=== PATIENT | female | born 1985 | race Caucasian/White ===

== ENCOUNTER 2024-11-27 07:52 | Emergency (ER) | payer OTHER, SELFPAY ==
--- NOTE | ~2024-11-27 | XR_ITS ---
EXAMINATION: XR ankle LT min 3V DATE: 11/27/2024 10:17 INDICATION: Lateral left ankle pain and bruising TECHNIQUE: Anteroposterior, oblique, mortise, and lateral views of the left ankle were obtained. COMPARISON: None. FINDINGS: Bone alignment is normal. Small corticated heterotopic ossicle situated between the tip the lateral m alleolus and the lateral process of the talus without evident donor site, likely related to chronic a nterior talofibular ligament sprain. No acute fracture. Joint spaces are normal. No cortical erosions or periosteal reaction. No definitive ankle joint effusion. Soft tissue swelling about the lateral m alleolus. No soft tissue gas or radiopaque foreign bodies. IMPRESSION: 1. No acute osseous abnormality. Reviewed, dictated and finalized at location A. EY COORDINATOR
[2024-11-27 07:56] VITALS: TEMP 36.6
--- OUTSIDE RECORDS SUMMARY | 2024-11-27 07:56 | XMS_ITS | Referral Summary ---
Author Organization [facility] Address [address] [place] [address] Care Team Providers Care Surveillance Observer Name Role Phone Unavailable Primary Care Provider Unavailabl e Immunizations Name Administration Dates Next Due Hep B, adult 02/08/2017 Social History Tobacco Use Types Packs/Day Years Used Date Smoking Tobacco: Never Assessed Inadequate Housing Answer Date Recorded Social Determinants: Housing (Overall Score Help er) 0 05/20/2019 Sex and Gender Information Value Date Recorded Sex Assigned at Not on file Gender Identity Not on file Sexual Orientation Not on file Last Filed Vital Signs Vital Sign Reading Time Taken Comments Blood Pressure 100/70 01/20/2017 1:44 PM CDT Pulse 92 01/20/2017 1:44 PM CDT Temperature 36.8 C (98.2 F) 01/20/2017 1:44 PM CDT Respiratory Rate 20 01/20/2017 1:44 PM CDT Oxygen Saturation - - Inhaled Oxygen Concentration - - Weight 53.5 kg (118 lb) 01/20/2017 1:44 PM CDT Height 162.6 cm (5' 4 ) 01/20/2017 1:44 PM CDT Body Mass Index 20.25 01/20/2017 1:44 PM CDT Plan of Treatment Not on file
--- OUTSIDE RECORDS SUMMARY | 2024-11-27 07:57 | XMS_ITS | Clinical Summary ---
Author Organization [facility] Address [address] [place] [id number] Care Team Providers Care Farm Crops Teacher Name Role Phone Unavailable Primary Care Provider [...] 01/20/2017 1:44 PM CDT Plan of Treatment Health Maintenance Due Date Last Done Comments Depression Screening 1998 Varicella Vaccine (1 of 2 - 13+ 2-dose series) 1999 DTaP/Tdap/Td Vaccine (1 - Tdap) 2005 Hepatitis B Vaccine (2 of 3 - 19+ 3-dose series) 03/08/2017 02/08/2017 COVID-19 Vaccine ( - 2023-2 5 season) 2024 Influenza Vaccine (#1) 2024 HPV Vaccine Aged Out No longer eligi ble based on patient's age to complete this topic Hepatitis A Vaccine Aged Out No longe r eligible based on patient's age to complete this topic Meningococcal Serogroup B Vaccine Aged Out No longer eligible based on patient's age to complete this topic Meningococcal Vaccine Aged Out No jessy madelyn eligible based on patient's age to complete this topic Pneumococcal Vaccine 0-49 Aged Out No longer eligible based on patient's age to complete this topic
--- OUTSIDE RECORDS SUMMARY | 2024-11-27 07:57 | XMS_ITS | Referral Summary ---
Author Organization [address] Address [address] [place] [address] Care Team Providers Care New Car Salesperson Name Role Phone Kira Rivera Primary Care Provider Unavailab le Encounters Date Type Department Care Team Description 11/23/2024 4:30 PM INTERNAL MEDICINE VETERINARY TECHNICIAN Office Visit [facility] [place] [address] [place] [address] Christiana Basilio NP Rash (Primary Dx) 09/12/2024 8:15 AM INTERNAL MEDICINE VETERINARY TECHNICIAN Office Visit [facility] [place] [address] [place] [address] Christiana Basilio NP Strep pharyngitis (Primary Dx) from Last 3 Months Allergies No known active allergies Medications clotrimazole 1 % creamIndication s:Rash Apply topically 2 (two) times a day Continue using for 1 week after symptoms resolve, up to 4 weeks total. 30 g 1 4 Active Additional Information Patient not taking.Reported on 11/23/2024 clobetasoL (TEMOVATE) 0.05 % creamIndication s:Rash Apply topically 2 (two) times a day 30 g 5 Active predniSONE (DELTASONE) 20 mg tabletIndicatio ns:Rash Take 1 tablet (20 mg) by mouth 2 (two) times a day for 5 days 10 tablet 5 11/28/19 25 Active Active Problems Problem Noted Date Diagnosed Date Premenstrual dysphoric disorder 02/21/2014 Overview (01/11/2017): PMDD (premenstrual dysphoric disorder) Calculus of kidney 11/24/2013 Overview (01/11/2017): Nephrolithiasis Immunizations Immunization Administration Dates Next Due Hep B Vaccine 05/15/1997,12/12/1996,11/14/1996 MMR 04/29/1992,12/10/1987 Td, adsorbed 05/21/2002 Social History Tobacco Use Types Packs/Day Years Used Date Smoking Tobacco: Never Assessed Comments:Smoking History Pac ks/day: 0 Packs Alcohol Use Standard Drinks/Week Comments Yes 0 (1 standard drink = 0.6 oz pur e alcohol) Comments Unknown Sex and Gender Information Value Date Recorded Sex Assigned at Not on file Legal Sex Female 2:26 AM INTERNAL MEDICINE VETERINARY TECHNICIAN Gender Identity Not on file Sexual Orientation Not on file Last Filed Vital Signs Vital Sign Reading Time Taken Comments Blood Pressure 126/80 11/23/2024 4:15 PM INTERNAL MEDICINE VETERINARY TECHNICIAN Pulse 101 11/23/2024 4:15 PM INTERNAL MEDICINE VETERINARY TECHNICIAN Temperature 36.1 C (97 F) 11/23/2024 4:15 PM INTERNAL MEDICINE VETERINARY TECHNICIAN Respiratory Rate 17 11/23/2024 4:15 PM INTERNAL MEDICINE VETERINARY TECHNICIAN Oxygen Saturation 98% 11/23/2024 4:15 PM INTERNAL MEDICINE VETERINARY TECHNICIAN Inhaled Oxygen Concentration - - Weight 76.2 kg (168 lb) 11/23/2024 4:15 PM INTERNAL MEDICINE VETERINARY TECHNICIAN Height 162.6 cm (5' 4 ) 11/23/2024 4:15 PM INTERNAL MEDICINE VETERINARY TECHNICIAN Body Mass Index 28.84 11/23/2024 4:15 PM INTERNAL MEDICINE VETERINARY TECHNICIAN Plan of Treatment Not on file Procedures Procedure Name Priority Date/Time Associated Diagnosis Comments POCT RAPID STREP Routine 09/12/2024 8:22 AM INTERNAL MEDICINE VETERINARY TECHNICIAN Strep pharyngitis from Last 3 Months Results * (ABNORMAL) POCT rapid strep A (09/12/2024 8:22 AM INTERNAL MEDICINE VETERINARY TECHNICIAN) Rapid Strep A, POC Positive(A ) Negative Swab 09/12/2024 8:22 AM INTERNAL MEDICINE VETERINARY TECHNICIAN Christiana Basilio NP POINT OF CARE TEST ORDERABLES Final Result from Last 3 Months Insurance [facility]NA [facility] Care Teams New Car Salesperson Relationship Specialty Start Date End Date Kira Rivera PCP - General 10/14/12
--- OUTSIDE RECORDS SUMMARY | 2024-11-27 07:57 | XMS_ITS | Clinical Summary ---
Author Organization [address] Address [address] [place] [address] Care Team Providers Care Brim Flexer Name Role Phone Kira Rivera Primary Care Provider Unavailab le Allergies No known active allergies Medications clotrimazole [...] Calculus of kidney 11/24/2013 Overview (01/11/2017): Nephrolithiasis Encounters Date Type Department Care Team Description 11/23/2024 4:30 PM ENVIRONMENTAL SCIENCE PROFESSOR Office Visit [facility] at [address] [place] [address] Christiana Basilio NP Rash (Primary Dx) 09/12/2024 8:15 AM ENVIRONMENTAL SCIENCE PROFESSOR Office Visit [facility] [place] [address] [place] [address] Christiana Basilio, JAQUELINE Strep pharyngitis (Primary Dx) from Last 3 Months Immunizations Immunization Administration Dates Next Due Hep B Vaccine 05/15/1997,12/12/1996,11/14/1996 MMR 04/29/1992,12/10/1987 Td, adsorbed 05/21/2002 Surgical History Surgery Date Site/Laterality Comments OTHER SURGICAL HISTORY PREETI III. HPV POS: LEEP CONE Medical History Medical History Date Comments Hx Other Medical 2007 PREETI III. HPV PO S Family History Medical History Relation Name Comments Alcohol abuse Father Alcoholism; Diabetes type II Maternal Grandfather Talisha loco -Type 2; Blood Clot Maternal Grandmother BLOOD C LOTS; Alcohol abuse Mother Alcoholism; Hyperlipidemia Mother Hyperlipidemi a; Coronary artery disease Other Fami ly history of Coronary artery disease; Lung cancer Other Family history of Cancer -lung; Diabetes type I Sister Diabetes -Ty pe 1; Relation Name Status Comments Father Maternal Grandfather Maternal Grandmother Mother Other Sister Social History Tobacco Use Types Packs/Day Years Used Date Smoking Tobacco: Never Assessed Comments:Smoking History Pac ks/day: 0 Packs Alcohol Use Standard Drinks/Week Comments Yes 0 (1 standard drink = 0.6 oz pur e alcohol) Comments Unknown Sex and Gender Information Value Date Recorded Sex Assigned at Not on file Legal Sex Female 2:26 AM ENVIRONMENTAL SCIENCE PROFESSOR Gender Identity Not on file Sexual Orientation Not on file Obstetrics History Last Filed Vital Signs Vital Sign Reading Time Taken Comments Blood Pressure 126/80 11/23/2024 4:15 PM ENVIRONMENTAL SCIENCE PROFESSOR Pulse 101 11/23/2024 4:15 PM ENVIRONMENTAL SCIENCE PROFESSOR Temperature 36.1 C (97 F) 11/23/2024 4:15 PM ENVIRONMENTAL SCIENCE PROFESSOR Respiratory Rate 17 11/23/2024 4:15 PM ENVIRONMENTAL SCIENCE PROFESSOR Oxygen Saturation 98% 11/23/2024 4:15 PM ENVIRONMENTAL SCIENCE PROFESSOR Inhaled Oxygen Concentration - - Weight 76.2 kg (168 lb) 11/23/2024 4:15 PM ENVIRONMENTAL SCIENCE PROFESSOR Height 162.6 cm (5' 4 ) 11/23/2024 4:15 PM ENVIRONMENTAL SCIENCE PROFESSOR Body Mass Index 28.84 11/23/2024 4:15 PM ENVIRONMENTAL SCIENCE PROFESSOR Plan of Treatment Health Maintenance Due Date Last Done Comments Cervical Cancer Screening 1986 Depression Screening 1986 Hepatitis C Screening 1986 Varicella Vaccines (1 of 2 - 13+ 2-dose series) 1999 DTaP/Tdap/Td Vaccine (1 - Tdap) 05/22/2002 05/21/2002 Regular Well Visit/Exam 18-64 2004 Influenza Vaccine (#1) 2024 Hepatitis B Screening Completed 05/15/1997 , 12/12/1996, 11/14/1996 HPV Vaccines Aged Out No longer eligi ble based on patient's age to complete this topic Pneumococcal vaccine <65 Aged Out No longer eligible based on patient's age to complete this topic Procedures Procedure Name Priority Date/Time Associated Diagnosis Comments POCT RAPID STREP Routine 09/12/2024 8:22 AM ENVIRONMENTAL SCIENCE PROFESSOR Strep pharyngitis from Last 3 Months Results * (ABNORMAL) POCT rapid strep A (09/12/2024 8:22 AM ENVIRONMENTAL SCIENCE PROFESSOR) Rapid Strep A, POC Positive(A ) Negative Swab 09/12/2024 8:22 AM ENVIRONMENTAL SCIENCE PROFESSOR Christiana Basilio NP POINT OF CARE TEST ORDERABLES Final Result from Last 3 Months Insurance AETNA [facility] Care Teams Brim Flexer Relationship Specialty Start Date End Date Kira Rivera PCP - General 10/14/12
[2024-11-27 08:02] VITALS: BP 130/90; PULSE 98; RESP 16; TEMP 36.4; O2SAT 98
[2024-11-27 08:16] LABS: BEDSIDEPREGUCG Negative (Negative)
--- OUTSIDE RECORDS SUMMARY | 2024-11-27 08:34 | XMS_ITS | Referral Summary ---
Author Organization [address] Address [address] [place] [address] Care Team Providers Care Radiology Physician Name Role Phone Kira Rivera Primary Care Provider Unavailab le Encounters Date Type Department Care Team Description 11/23/2024 4:30 PM BOOT TURNER Office Visit [facility] [place] [address] [place] [address] Christiana Basilio NP Rash (Primary Dx) 09/12/2024 8:15 AM BOOT TURNER Office Visit [facility] [place] [address] [place] [address] Christiana Basilio NP Strep pharyngitis [...] on file Legal Sex Female 2:26 AM BOOT TURNER Gender Identity Not on file Sexual Orientation Not on file Last Filed Vital Signs Vital Sign Reading Time Taken Comments Blood Pressure 126/80 11/23/2024 4:15 PM BOOT TURNER Pulse 101 11/23/2024 4:15 PM BOOT TURNER Temperature 36.1 C (97 F) 11/23/2024 4:15 PM BOOT TURNER Respiratory Rate 17 11/23/2024 4:15 PM BOOT TURNER Oxygen Saturation 98% 11/23/2024 4:15 PM BOOT TURNER Inhaled Oxygen Concentration - - Weight 76.2 kg (168 lb) 11/23/2024 4:15 PM BOOT TURNER Height 162.6 cm (5' 4 ) 11/23/2024 4:15 PM BOOT TURNER Body Mass Index 28.84 11/23/2024 4:15 PM BOOT TURNER Plan of Treatment Not on file Procedures Procedure Name Priority Date/Time Associated Diagnosis Comments POCT RAPID STREP Routine 09/12/2024 8:22 AM BOOT TURNER Strep pharyngitis from Last 3 Months Results * (ABNORMAL) POCT rapid strep A (09/12/2024 8:22 AM BOOT TURNER) Rapid Strep A, POC Positive(A ) Negative Swab 09/12/2024 8:22 AM BOOT TURNER Christiana Basilio NP POINT OF CARE TEST ORDERABLES Final Result from Last 3 Months Insurance [facility]ETNA [facility] Care Teams Radiology Physician Relationship Specialty Start Date End Date Kira Rivera PCP - General 10/14/12
--- OUTSIDE RECORDS SUMMARY | 2024-11-27 08:34 | XMS_ITS | Clinical Summary ---
Author Organization [facility] Address [address] [place] [address] Care Team Providers Care Edger Machine Operator Name Role Phone Unavailable Primary Care Provider [...]
--- OUTSIDE RECORDS SUMMARY | 2024-11-27 08:34 | XMS_ITS | Referral Summary ---
Author Organization [facility] Address [address] [place] [address] Care Team Providers Care Sas Etl Developer Name Role Phone Unavailable Primary Care Provider [...]
--- OUTSIDE RECORDS SUMMARY | 2024-11-27 08:34 | XMS_ITS | Clinical Summary ---
Author Organization [address] Address [address] [place] [address] Care Team Providers Care Engineer Process Name Role Phone Kira Rivera Primary Care [...] Department Care Team Description 11/23/2024 4:30 PM GLOBAL ACCOUNT MANAGER Office Visit [facility] at [address] [place] [address] Christiana Basilio NP Rash (Primary Dx) 09/12/2024 8:15 AM GLOBAL ACCOUNT MANAGER Office Visit [facility] [place] [address] [place] [address] Christiana Basilio, JAQUELINE Strep pharyngitis (Primary [...] on file Legal Sex Female 2:26 AM GLOBAL ACCOUNT MANAGER Gender Identity Not on file Sexual Orientation Not on file Obstetrics History Last Filed Vital Signs Vital Sign Reading Time Taken Comments Blood Pressure 126/80 11/23/2024 4:15 PM GLOBAL ACCOUNT MANAGER Pulse 101 11/23/2024 4:15 PM GLOBAL ACCOUNT MANAGER Temperature 36.1 C (97 F) 11/23/2024 4:15 PM GLOBAL ACCOUNT MANAGER Respiratory Rate 17 11/23/2024 4:15 PM GLOBAL ACCOUNT MANAGER Oxygen Saturation 98% 11/23/2024 4:15 PM GLOBAL ACCOUNT MANAGER Inhaled Oxygen Concentration - - Weight 76.2 kg (168 lb) 11/23/2024 4:15 PM GLOBAL ACCOUNT MANAGER Height 162.6 cm (5' 4 ) 11/23/2024 4:15 PM GLOBAL ACCOUNT MANAGER Body Mass Index 28.84 11/23/2024 4:15 PM GLOBAL ACCOUNT MANAGER Plan of Treatment Health Maintenance Due Date [...] POCT RAPID STREP Routine 09/12/2024 8:22 AM GLOBAL ACCOUNT MANAGER Strep pharyngitis from Last 3 Months Results * (ABNORMAL) POCT rapid strep A (09/12/2024 8:22 AM GLOBAL ACCOUNT MANAGER) Rapid Strep A, POC Positive(A ) Negative Swab 09/12/2024 8:22 AM GLOBAL ACCOUNT MANAGER Christiana Basilio NP POINT OF CARE TEST ORDERABLES Final Result from Last 3 Months Insurance [facility]ETNA [facility] Care Teams Engineer Process Relationship Specialty Start Date End Date Kira Rivera PCP - General 10/14/12
[2024-11-27 08:39] LABS: Basophils Absolute Auto 0.1 K/mm3 (0.0-0.1); Basophils Percent Auto 0.5 % (0.2-1.2); Eosinophils Absolute Auto 0.2 K/mm3 (0-0.3); Eosinophils Percent Auto 2.3 % (0-4.4); Hematocrit 40.8 % (37.0-47.0); Hemoglobin 14.4 g/dL (12.0-15.0); Immature Granulocyte Absolute 0.03 K/mm3 (0.00-0.031); Immature Granulocyte Percent A 0.3 % (0-0.5); Mean Corpuscular HGB Conc 35.3 g/dl (32-36); Mean Corpuscular Hemoglobin 34.1 pg (26-34); Mean Corpuscular Volume 96.7 fl (80-100); Mean Platelet Volume 9.6 fl (7.4-10.4); Monocytes Absolute Auto 0.8 K/mm3 (0.1-0.6); Monocytes Percent Auto 8.1 % (2.6-8.5); Neutrophils Absolute Auto 6.1 K/mm3 (1.3-6.7); Neutrophils Percent Auto 63.8 % (45.5-73.1); Platelet Count Result 246 k/mm3 (150-375); Red Blood Count 4.22 M/mm3 (4.2-5.4); Red Cell Distribution Width 11.9 % (11.5-14.5); White Blood Count 9.6 K/mm3 (4.5-10.0)
[2024-11-27 08:48] LABS: Add Urine Microscopic? YES; Appearance Urine Cloudy (Clear); Bacteria Urine 1+ /hpf; Bilirubin Urine Negative (Negative); Blood Urine Negative (Negative); Color Urine Yellow (Yellow); Glucose Urine UA Negative (Negative); Ketones Urine Trace mg/dL (Negative); Leukocyte Esterase Ur 1+ LEU/UL (Negative); Nitrate Urine Negative (Negative); Non Pathogenic Casts 0-2; Protein Urine Negative (Negative); RBC Urine 0-2 /hpf (0-2); Specific Grav Ur 1.022 (1.001-1.035); Squamous Epithelial Cell Urine Moderate /hpf (Few); Urobilinogen Urine 0.2 mg/dL (<2.0)
[2024-11-27 08:54] LABS: Alanine Aminotransferase 14 U/L (6-35); Albumin Level 4.4 g/dL (3.5-5.1); Alkaline Phosphatase 54 U/L (38-126); Anion Gap 14 mmol/L (4-12); Aspartate Amino Transferase 27 U/L (14-36); Blood Urea Nitrogen 9 mg/dL (7-17); CRP < 0.5 mg/dL (<1.0); Calcium 9.5 mg/dL (8.4-10.2); Carbon Dioxide 20 mmol/L (22-30); Chloride 103 mmol/L (98-107); Estimated CRCL calculation 113 ml/min; Estimated Glomerular Filt Rate > 60; Glucose 125 mg/dL (65-110); Potassium 3.8 mmol/L (3.4-5.0); Sodium 137 mmol/L (137-145)
[2024-11-27 09:01] VITALS: BP 116/86; PULSE 86; RESP 16; TEMP 36.6; O2SAT 100
[2024-11-27 09:01] LABS: INR 0.9; Prothrombin Time 12.3 Seconds (11.1-14.7)
[2024-11-27 09:02] LABS: Partial Thromboplastin Time 21.4 Seconds (22.3-36.8)
[2024-11-27 09:29] LABS: Erythrocyte Sedimentation Rate 22 mm/hr (0-20)
[2024-11-27 10:00] VITALS: BP 108/80; PULSE 89; RESP 16; TEMP 36.6; O2SAT 100
--- NOTE | 2024-11-27 10:50 | ED.GENADULT ---
HPI - General Adult General Chief complaint: Skin/Abscess/Foreign Body Stated complaint: rash Time Seen by Provider: 11/27/24 07:54 History of Present Illness HPI narrative: Patient is a 39-year-old female who presents to the ER with concerns for bruising and petechiae. She has a rash to her legs that do look like petechiae that go from the ankles up to the thighs. Urgent care told her to come to the ER if it got worse. No bleeding from her gums. No known trauma to cause bruising to the left ankle though she does have pain in the area. She has no fevers or chills or sweats. No known autoimmune condition. She has some dry skin over the areas of redness like the skin is healing. No change in her urination. No recent illness but was sick at [place]. Related Data Allergies Allergy/AdvReac Type Severity Reaction Status Date / Time amoxicillin Allergy Unknown glutate Verified 11/27/24 07:52 psoriasis [facility] Past Medical History Medical History (Updated 11/27/24 @ 10:56 by Konstantin Ngo MD) Healthy female adult Exam Narrative: GENERAL: Well-appearing, well-nourished, and in no acute distress. HEAD: Normocephalic, atraumatic. ENT: Mucous membranes moist. NECK: Supple. CHEST: Clear to auscultation. No respiratory distress. HEART: Regular rate and rhythm. Normal peripheral pulses.. EXTREMITIES: Normal range of motion. No edema. Mild left lateral ankle pain. SKIN: Warm, dry. Smaller is a PTCA to the shins and dorsums of the feet and the thighs bilaterally. Pretty spread out and not bunched together. Bruising left lateral posterior ankle. NEURO: Alert and oriented x3. PSYCH: Normal mood and affect. Course Course Emergency Course: Patient resting comfortably. Informed of results. Will give antibiotics for UTI. If symptoms worsen may need skin biopsy through PCP or derm. Vital Signs Vital signs: Vital Signs Temperature 97.9 F 11/27/24 07:56 Temperature 97.9 F 11/27/24 10:00 Pulse Rate 89 11/27/24 10:00 Respiratory Rate 16 11/27/24 10:00 Blood Pressure 108/80 11/27/24 10:00 Pulse Oximetry 100 11/27/24 10:00 Medical Decision Making Vital Signs Vital Signs: Vital Signs Temperature 97.9 F 11/27/24 07:56 Temperature 97.9 F 11/27/24 10:00 Pulse Rate 89 11/27/24 10:00 Respiratory Rate 16 11/27/24 10:00 Blood Pressure 108/80 11/27/24 10:00 Pulse Oximetry 100 11/27/24 10:00 Lab Data 11/27/24 08:30 11/27/24 08:30 Labs: Lab Results 11/27/24 11/27/24 Range/Units 08:03 08:30 WBC 9.6 (4.5-10.0) K/mm3 RBC 4.22 (4.2-5.4) M/mm3 Hgb 14.4 (12.0-15.0) g/dL Hct 40.8 (37.0-47.0) % MCV 96.7 (80-100) fl MCH 34.1 H (26-34) pg MCHC 35.3 (32-36) g/dl RDW 11.9 (11.5-14.5) % Plt Count 246 (150-375) k/mm3 MPV 9.6 (7.4-10.4) fl Immature Gran % (Auto) 0.3 (0-0.5) % Neut % (Auto) 63.8 (45.5-73.1) % Lymph % (Auto) 25.0 (18.3-44.2) % [place] % (Auto) 8.1 (2.6-8.5) % Eos % (Auto) 2.3 (0-4.4) % Baso % (Auto) 0.5 (0.2-1.2) % Lymph # (Auto) 2.40 (0.9-3.2) K/mm3 [place] # (Auto) 0.8 H (0.1-0.6) K/mm3 Eos # (Auto) 0.2 (0-0.3) K/mm3 Baso # (Auto) 0.1 (0.0-0.1) K/mm3 Abs Immat Gran (auto) 0.03 (0.00-0.031) K/mm3 Absolute Neuts (auto) 6.1 (1.3-6.7) K/mm3 Absolute Nucleated RBC 0.000 (0.0-0.012) K/mm3 Nucleated RBC % 0.0 (0.0-0.2) % ESR 22 H (0-20) mm/hr PT 12.3 (11.1-14.7) Seconds INR 0.9 APTT 21.4 L (22.3-36.8) Seconds Sodium 137 (137-145) mmol/L Potassium 3.8 (3.4-5.0) mmol/L Chloride 103 (98-107) mmol/L Carbon Dioxide 20 L (22-30) mmol/L Anion Gap 14 H (4-12) mmol/L BUN 9 (7-17) mg/dL Creatinine 0.56 L (0.7-1.0) mg/dL Estim Creat Clear Calc 113 ml/min Estimated GFR > 60 (59 - ) Glucose 125 H (65-110) mg/dL Calcium 9.5 (8.4-10.2) mg/dL Total Bilirubin 1.0 (0.2-1.3) mg/dL AST 27 (14-36) U/L ALT 14 (6-35) U/L Alkaline Phosphatase 54 (38-126) U/L C-Reactive Protein < 0.5 (<1.0) mg/dL Total Protein 8.0 (6.3-8.2) g/dL Albumin 4.4 (3.5-5.1) g/dL Urine Color Yellow (Yellow) Urine Appearance Cloudy H (Clear) Urine pH 5.0 (5.0-9.0) Ur Specific Sebastian 1.022 (1.001-1.035) Urine Protein Negative (Negative) mg/dL Urine Glucose (UA) Negative (Negative) mg/dL Urine Ketones Trace H (Negative) mg/dL Ur Blood (Man) Negative (Negative) Urine Nitrate Negative (Negative) Urine Bilirubin Negative (Negative) Urine Urobilinogen 0.2 (<2.0) mg/dL Leukocyte Esterase Rfl 1+ H (Negative) AARON/UL Urine RBC 0-2 (0-2) /hpf Urine WBC 11-20 H (0-3) /hpf Ur Squamous Epith Cells Moderate (Few) /hpf Urine Bacteria 1+ H /hpf Urine Casts 0-2 POC Urine HCG, Qual Negative (Negative) Imaging Data Radiologist's impression: ITS Impressions Ankle X-Ray 11/27/24 10:31 IMPRESSION: 1. No acute osseous abnormality. Discharge Plan Discharge Clinical Impression: Ankle contusion, UTI (urinary tract infection), Rash and nonspecific skin eruption Patient Disposition: Home, Self-Care Condition: Stable Instructions: Antibiotic Form, Urinary Tract Infection in Women (ED), Acute Rash (ED), Contusion in Adults (ED) Additional Instructions: Follow-up with your primary care doctor or allergist/immunologist but your rash. Return the ER if he cannot breathe, he cannot swallow, have additional concerns. You do have mild UTI and will be given antibiotics. Patient Language: Estonian Prescriptions: New cephalexin 500 mg capsule 500 mg PO Q12H Qty: 10 0RF No Action norgestimate-ethinyl estradiol [Sprintec (28)] 0.25-35 mg-mcg tablet 1 tablet PO DAILY Qty: 28 0RF Follow-up/Referrals: Dyllan Taylor MD [Physician] - 1 Week UNKNOWN,DOCTOR [Primary Care Provider] -
[2024-11-27 11:00] VITALS: BP 116/78; PULSE 82; RESP 16; TEMP 36.6; O2SAT 100
== END 2024-11-27 11:31 | disposition home or self-care (01) ==
PROVIDERS: Emergency Provider Emergency Medicine
DX: R21 Rash and other nonspecific skin eruption (principal); N39.0 Urinary tract infection, site not specified; S90.02XA Contusion of left ankle, initial encounter
CPT/HCPCS: 36415; 73610; 80053; 81001; 81025; 85025; 85610; 85652; 85730; 86140; 99283